=== PATIENT | female | born 1975 | race American Indian/Alaskan Native ===

== ENCOUNTER 2017-06-14 04:10 | Emergency (ER) | payer BC ==
[2017-06-14 05:12] LABS: Basophils % (Auto) 0.4 % (0.0-1.8); Eosinophils % (Auto) 1.7 % (0.0-4.3); Hemoglobin 11.1 gm/dl (10.1-14.3); Mean Corpuscular HGB Conc 32 % (30-34); Mean Corpuscular Volume 77 fl (79-97); Platelet Count 208 K/mm3 (140-440); Red Blood Count 4.58 M/mm3 (3.65-5.03); Red Cell Distribution Width 18.7 % (13.2-15.2); White Blood Count 6.6 K/mm3 (4.5-11.0)
[2017-06-14 05:27] LABS: Mean Corpuscular Hemoglobin 24 pg (28-32)
[2017-06-14 05:31] LABS: Anion Gap 19 mmol/L; BUN/Creatinine Ratio 16.66; Blood Urea Nitrogen 10 mg/dL (7-17); Calcium 9.5 mg/dL (8.4-10.2); Carbon Dioxide 23 mmol/L (22-30); Chloride 103.5 mmol/L (98-107); Glucose 146 mg/dL (65-100); Potassium 3.8 mmol/L (3.6-5.0); Sodium 142 mmol/L (137-145)
[2017-06-14 06:12] LABS: INR 0.91 (0.87-1.13)
[2017-06-14 06:13] LABS: Partial Thromboplastin Time 29.3 Sec. (24.2-36.6)
--- NOTE | 2017-06-14 07:04 | Emergency Department Report ---
ED Chest Pain HPI - General Chief Complaint: Dyspnea/Respdistress Stated Complaint: CHEST PAIN/PRICILA Time Seen by Provider: 06/14/17 06:34 Source: patient, EMS Mode of arrival: Stretcher Limitations: No Limitations - History of Present Illness Initial Comments: 42-year-old female with a history of 3 days shortness of breath palpitations and chest pain. Patient states that she's noticed her heart palpitations at rest. She feels more short of breath at rest than with exertion. She says she doesn't notice her symptoms when she exerts herself. She describes the discomfort in the center of her chest which she has had before. She was recently at [facility] and treated for URI. Denies fevers chills nausea vomiting. -: days(s) (3) Onset: during rest Pain Location: other (center chest) Pain Radiation: none Severity: mild Severity scale (0 -10): 3 Quality: squeezing Consistency: intermittent, now resolved Improves With: other (exertion) Worsens With: other (rest) Other Symptoms: palpitations. denies: cough, fever, syncope, rash, acid taste in mouth, leg swelling - Related Data Home Medications Medication Instructions Recorded Confirmed Last Taken Integra Plus Capsule 1 tab DAILY 06/14/17 06/14/17 Unknown amLODIPine 5 mg DAILY 06/14/17 06/14/17 Unknown Allergies Allergy/AdvReac Type Severity Reaction Status Date / Time No Known Allergies Allergy Verified 10/22/16 20:20 Heart Score - HEART Score History: Slightly suspicious EKG: Normal Age: < 45 Risk factors: 1-2 risk factors Troponin: < normal limit HEART Score: 1 - Critical Actions Critical Actions: 0-3 pts:0.9-1.7%risk of adverse cardiac event.Candidate for discharge ED Review of Systems ROS: Stated complaint: CHEST PAIN/PRICILA Other details as noted in HPI Comment: All other systems reviewed and negative Constitutional: denies: chills, fever Eyes: denies: eye pain, eye discharge, vision change ENT: denies: ear pain, throat pain Respiratory: denies: cough, shortness of breath, wheezing Cardiovascular: as per HPI, chest pain, palpitations Endocrine: no symptoms reported Gastrointestinal: denies: abdominal pain, nausea, diarrhea Genitourinary: denies: urgency, dysuria, discharge Musculoskeletal: denies: back pain, joint swelling, arthralgia Skin: denies: rash, lesions Neurological: denies: headache, weakness, paresthesias Psychiatric: denies: anxiety, depression Hematological/Lymphatic: denies: easy bleeding, easy bruising ED Past Medical Hx - Past Medical History Previous Medical History?: Yes Hx Hypertension: Yes Hx Asthma: Yes - Surgical History Past Surgical History?: Yes Additional Surgical History: - Family History Family history: CAD/AZ - Social History Smoking Status: Never Smoker Substance Use Type: None - Medications Home Medications: Home Medications Medication Instructions Recorded Confirmed Last Taken Type Integra Plus Capsule 1 tab DAILY 06/14/17 06/14/17 Unknown History amLODIPine 5 mg DAILY 06/14/17 06/14/17 Unknown History ED Physical Exam - General Limitations: No Limitations General appearance: alert, in no apparent distress - Head Head exam: Present: atraumatic, normocephalic - Eye Eye exam: Present: normal appearance, PERRL, EOMI - ENT ENT exam: Present: normal orophraynx, mucous membranes moist - Neck Neck exam: Absent: tenderness, lymphadenopathy - Respiratory Respiratory exam: Present: normal lung sounds bilaterally. Absent: respiratory distress, wheezes - Cardiovascular Cardiovascular Exam: Present: regular rate, normal rhythm, other (occasional ectopic beat). Absent: systolic murmur, diastolic murmur, rubs, gallop - GI/Abdominal GI/Abdominal exam: Present: soft, normal bowel sounds, other (obese). Absent: distended, tenderness - Extremities Exam Extremities exam: Present: normal inspection. Absent: tenderness - Back Exam Back exam: Present: normal inspection. Absent: muscle spasm - Neurological Exam Neurological exam: Present: alert, oriented X3 - Psychiatric Psychiatric exam: Present: normal affect, normal mood - Skin Skin exam: Present: warm, dry, intact, normal color. Absent: rash ED Course Vital Signs 06/14/17 06/14/17 06/14/17 04:30 06:48 07:12 Temperature 99.0 F 99.4 F Pulse Rate 86 90 78 Respiratory 18 18 14 Rate Blood Pressure 157/91 140/72 142/73 [Right] O2 Sat by Pulse 100 100 100 Oximetry SULAIMAN score - Sulaiman Score Age > 65: (0) No Aspirin use within the Past 7 Days: (0) No 3 or more CAD Risk Factors: (0) No 2 or more Angina events in past 24 hrs: (0) No Known CAD with more than 50% Stenosis: (0) No Elevated Cardiac Markers: (0) No ST Deviation Greater than 0.5mm: (0) No SULAIMAN Score: 0 ED Medical Decision Making - Lab Data Result diagrams: 06/14/17 04:42 06/14/17 04:42 Laboratory Results - last 24 hr 06/14/17 06/14/17 06/14/17 04:26 04:42 04:42 WBC RBC Hgb Hct MCV MCH MCHC RDW Plt Count Lymph % (Auto) [place] % (Auto) Eos % (Auto) Baso % (Auto) Lymph # [place] # Eos # Baso # Seg Neutrophils % Seg Neutrophils # PT INR APTT VBG pH 7.351 Sodium 142 Potassium 3.8 Chloride 103.5 Carbon Dioxide 23 Anion Gap 19 BUN 10 Creatinine 0.6 L Estimated GFR > 60 BUN/Creatinine Ratio 16.66 Glucose 146 H Lactic Acid 2.20 H* Calcium 9.5 Magnesium 2.00 Troponin T < 0.010 HCG, Qual 06/14/17 06/14/17 06/14/17 04:42 04:42 05:49 WBC 6.6 RBC 4.58 Hgb 11.1 Hct 35.0 MCV 77 L MCH 24 L MCHC 32 RDW 18.7 H Plt Count 208 Lymph % (Auto) 22.2 [place] % (Auto) 5.5 Eos % (Auto) 1.7 Baso % (Auto) 0.4 Lymph # 1.5 [place] # 0.4 Eos # 0.1 Baso # 0.0 Seg Neutrophils % 70.2 H Seg Neutrophils # 4.6 PT 12.7 INR 0.91 APTT 29.3 VBG pH Sodium Potassium Chloride Carbon Dioxide Anion Gap BUN Creatinine Estimated GFR BUN/Creatinine Ratio Glucose Lactic Acid Calcium Magnesium Troponin T HCG, Qual Negative Laboratory Last Values WBC 6.6 K/mm3 (4.5-11.0) 06/14/17 04:42 RBC 4.58 M/mm3 (3.65-5.03) 06/14/17 04:42 Hgb 11.1 gm/dl (10.1-14.3) 06/14/17 04:42 Hct 35.0 % (30.3-42.9) 06/14/17 04:42 MCV 77 fl (79-97) L 06/14/17 04:42 MCH 24 pg (28-32) L 06/14/17 04:42 MCHC 32 % (30-34) 06/14/17 04:42 RDW 18.7 % (13.2-15.2) H 06/14/17 04:42 Plt Count 208 K/mm3 (140-440) 06/14/17 04:42 Lymph % (Auto) 22.2 % (13.4-35.0) 06/14/17 04:42 [place] % (Auto) 5.5 % (0.0-7.3) 06/14/17 04:42 Eos % (Auto) 1.7 % (0.0-4.3) 06/14/17 04:42 Baso % (Auto) 0.4 % (0.0-1.8) 06/14/17 04:42 Lymph # 1.5 K/mm3 (1.2-5.4) 06/14/17 04:42 [place] # 0.4 K/mm3 (0.0-0.8) 06/14/17 04:42 Eos # 0.1 K/mm3 (0.0-0.4) 06/14/17 04:42 Baso # 0.0 K/mm3 (0.0-0.1) 06/14/17 04:42 Seg Neutrophils % 70.2 % (40.0-70.0) H 06/14/17 04:42 Seg Neutrophils # 4.6 K/mm3 (1.8-7.7) 06/14/17 04:42 PT 12.7 Sec. (12.2-14.9) 06/14/17 05:49 INR 0.91 (0.87-1.13) 06/14/17 05:49 APTT 29.3 Sec. (24.2-36.6) 06/14/17 05:49 VBG pH 7.351 (7.320-7.420) 06/14/17 04:42 Sodium 142 mmol/L (137-145) 06/14/17 04:42 Potassium 3.8 mmol/L (3.6-5.0) 06/14/17 04:42 Chloride 103.5 mmol/L (98-107) 06/14/17 04:42 Carbon Dioxide 23 mmol/L (22-30) 06/14/17 04:42 Anion Gap 19 mmol/L 06/14/17 04:42 BUN 10 mg/dL (7-17) 06/14/17 04:42 Creatinine 0.6 mg/dL (0.7-1.2) L 06/14/17 04:42 Estimated GFR > 60 ml/min 06/14/17 04:42 BUN/Creatinine Ratio 16.66 % 06/14/17 04:42 Glucose 146 mg/dL (65-100) H 06/14/17 04:42 Lactic Acid 2.20 mmol/L (0.7-2.0) H* 06/14/17 04:26 Calcium 9.5 mg/dL (8.4-10.2) 06/14/17 04:42 Magnesium 2.00 mg/dL (1.7-2.3) 06/14/17 04:42 Troponin T < 0.010 ng/mL (0.00-0.029) 06/14/17 08:32 HCG, Qual Negative (Negative) 06/14/17 04:42 - EKG Data -: EKG Interpreted by Me EKG shows normal: sinus rhythm - EKG Data 06/14/17 07:04 Sinus rate of 77 normal axis normal intervals multiple PVCs consistent with bigeminy no ST segment or T-wave changes - Radiology Data Radiology results: image reviewed interpreted by me: Chest x-ray is clear - Medical Decision Making Patient is a 42-year-old female here with complaint of multiple palpitations and chest pain that she notices worse with rest. She is likely having multiple PVCs. Her EKG shows no ischemic changes. She has a troponin is negative. Her heart score places her in the wrist. Plan to get a chest x-ray repeat troponin and if negative will discharge. 9:38 AM patient repeat EKG and troponin are negative. I do not suspect that this is cardiac. I plan to discharge her home. She likely has palpitations. Portions of this chart were dictated with dictation software. There may be dictation errors contained within this note. Critical care attestation.: If time is entered above; I have spent that time in minutes in the direct care of this critically ill patient, excluding procedure time. ED Disposition Clinical Impression: Palpitations Disposition: DC-01 TO HOME OR SELFCARE Is pt being admited?: No Condition: Stable Instructions: Palpitations (ED) Additional Instructions: Follow-up that her primary care or supervisor bindery within the next few days. He may want to start a beta isa if you have continued symptomatic palpitations. Referrals: LULA GIBSON MD [Primary Care Provider] - 3-5 Days
[2017-06-14 07:13] VITALS: BP 142/73
--- NOTE | 2017-06-14 09:26 | XRay Report ---
Chest 2 views: History: Shortness of breath. Findings: Normal cardiomediastinal silhouette. Trachea is midline. No consolidation, pneumothorax or pleural effusion. Impression: No acute cardiopulmonary findings.
== END 2017-06-14 09:48 | disposition home or self-care (01) ==
LOC: ED 04:10
DX: R00.2 Palpitations (principal); I10 Essential (primary) hypertension; J45.909 Unspecified asthma, uncomplicated
CPT/HCPCS: 36415; 71020; 80048; 82140; 82805; 83735; 84484; 84703; 85025; 85610; 85730; 93005; 93010